=== PATIENT | female | born 1935 | race Caucasian/White ===

== ENCOUNTER 2023-11-21 09:56 | Outpatient (REF) | payer MEDICARE, MEDICAID, SELFPAY ==
--- NOTE | 2023-11-21 10:26 | MHC.AU.HA3 ---
Hearing Instrument Follow-Up- Binaural Date of Visit: 11/21/23 Right Ear: [place]ico, Model, Color, Serial Number: Sherice Cisse AI 1600 RONAN[employer] #[id number] Parts Remover Repair Warranty: 03/26/2025 Parts Remover Loss and Damage Warranty: 03/26/2025 [facility] Service Plan: 01/17/2023 Battery Size: Rechargeable System Support Analyst/Slim Tube: Size 2 60-Gain Earmold/Dome/CShell/SlimTip: Type of Wax Guard: HearClear Dispensed By: [facility] Date of Fittin01/17/2022 Left Ear: [place], Model, Color, Serial Number: Sherice Cisse AI 1600 [employer] #[id number] Parts Remover Repair Warranty: 03/26/2025 Parts Remover Loss and Damage Warranty: 03/26/2025 [facility] Service Plan: 01/17/2023 Battery Size: Rechargeable System Support Analyst/Slim Tube: Size 2 60-Gain Earmold/Dome/CShell/SlimTip: Type of Wax Guard: HearClear Dispensed By: [facility] Date of Fittin01/17/2022 Follow-Up Summary: Here with son. Reports left hearing aid is not working. 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 Found both aids with clogged wax guards. Cleaned aids, replaced wax guards, replaced domes. Listening check positive after cleaning. Reviewed wax guard change with son. Recommendations: Recommendations: Hearing instrument follow-up or maintenance as needed. Diagnosis Code(s): Primary Diagnosis: H90.3 Bilateral Sensorineural Hearing Loss Signature: Provider: Sonal Rico, [facility]
== END 2023-11-21 09:57 | disposition home or self-care (01) ==
LOC: HO.HAP 09:56
PROVIDERS: Visit Provider Internal Medicine Endocrinology, Diabetes & Metabolism
DX: Z46.1 Encounter for fitting and adjustment of hearing aid (principal); H90.3 Sensorineural hearing loss, bilateral
CPT/HCPCS: 92593; 99499

== ENCOUNTER 2024-04-23 10:51 | Outpatient (REF) | payer MEDICARE, MEDICAID, SELFPAY | END 2024-04-23 10:52 | disposition home or self-care (01) | LOC: HO.HAP 10:51 | PROVIDERS: PCP Physician Assistant; Visit Provider Physician Assistant | DX: Z46.1 Encounter for fitting and adjustment of hearing aid (principal); H90.3 Sensorineural hearing loss, bilateral | CPT/HCPCS: 92593 ==